=== PATIENT | female | born 1930 | race Caucasian/White ===

== ENCOUNTER 2019-04-16 17:01 | Inpatient (IN) ==
[2019-04-16 18:26] LABS: Basophils % 0.4 % (0.0-0.8); Eosinophils % 0.3 % (0.00-10.9); Hematocrit 35.8 VOL% (35.7-47.0); Hemoglobin 11.5 GM/DL (12.0-16.0); Immature Granulocytes % 0.6 %; Immature Granulocytes Absolute 0.06 #; Lymphocytes # 0.9 10*3/uL (1.4-4.0); Lymphocytes % 9.2 % (21.3-54.2); Mean Corpuscular HGB Conc 32.1 GM/DL (32-36); Mean Corpuscular Volume 98.9 FL (87-102); Mean Platelet Volume 11.7 FL (9.6-12.0); Monocytes % 5.1 % (1.7-12.7); Neutrophils % 84.4 % (38.7-73.9); Red Blood Count 3.62 MC/CUMM (3.8-5.5); Red Cell Distribution Width 13.2 % (9.3-17.3); White Blood Count 10.1 T/CUMM (4-12)
[2019-04-16 18:27] LABS: Platelet Count 125 T/CUMM (130-400)
[2019-04-16 18:28] LABS: Calcium 8.5 MG/DL (8.5-10.1); Osmolality,Calculated 286.1 MOS/KG (273-304)
[2019-04-16 18:51] LABS: Anisocytosis Slight; Macrocytosis Slight; Platelet Estimate Adequate
[2019-04-16] MEDS ORDERED: DOCUSATE SODIUM 100 MG CAPSULE PO PRN (19:04)
[2019-04-16] MEDS ORDERED: ONDANSETRON 4 MG/2 ML VIAL IV PRN (19:04)
[2019-04-16] MEDS ORDERED: ACETAMINOPHEN 325 MG TABLET PO PRN (19:04)
[2019-04-16] MEDS ORDERED: LACTULOSE 20 GM/30 ML UDCUP PO PRN (19:04)
[2019-04-16 19:07] LABS: Apearance,Urine Slightly Hazy (Clear); Bilirubin,Urine Negative (Negative); Blood, Urine Small mg/dL (Negative); Glucose,Urine (UA) Negative (Negative); Ketones,Urine Negative (Negative); Mucus,Urine Occasional /LPF (Occasional); Nitrite,Urine Negative (Negative); Protein,Urine Negative; RBC,Urine 3 /HPF (0-4); Squamous Epithelial Cell,Urine Occasional /HPF (0-10); Urine Color Yellow (Yellow); Urine Urobilinogen < 2.0 EU/DL (0.2-1.0); WBC,Urine 16 /HPF (0-6)
[2019-04-16] MEDS ORDERED: NITROGLYCERIN SL 0.4 MG TABLET SL PRN (19:09)
[2019-04-16] MEDS: DEXTROSE 5% NACL 0.45% 1,000 ML IV SCH (21:32)
[2019-04-16] MEDS: HYDROmorphone 2 MG/1 ML VIAL IV PRN (21:33)
[2019-04-17] MEDS: HYDROmorphone 2 MG/1 ML VIAL IV PRN ×2 (01:16→23:11)
[2019-04-17 06:00] LABS: Basophils % 0.4 % (0.0-0.8); Eosinophils % 0.1 % (0.00-10.9); Hemoglobin 10.9 GM/DL (12.0-16.0); Immature Granulocytes % 0.4 %; Immature Granulocytes Absolute 0.03 #; Lymphocytes # 1.3 10*3/uL (1.4-4.0); Mean Corpuscular HGB Conc 32.1 GM/DL (32-36); Mean Corpuscular Volume 98.3 FL (87-102); Mean Platelet Volume 11.6 FL (9.6-12.0); Monocytes % 12.1 % (1.7-12.7); Platelet Count 124 T/CUMM (130-400); Red Blood Count 3.46 MC/CUMM (3.8-5.5); Red Cell Distribution Width 13.3 % (9.3-17.3); White Blood Count 7.9 T/CUMM (4-12)
[2019-04-17 06:26] LABS: Calcium 8.3 MG/DL (8.5-10.1); Osmolality,Calculated 280.5 MOS/KG (273-304)
[2019-04-17] MEDS ORDERED: ONDANSETRON 4 MG/2 ML VIAL IV PRN (07:21)
[2019-04-17] MEDS ORDERED: MEPERIDINE 25 MG/1 ML VIAL IV PRN (07:21)
[2019-04-17] MEDS: METOPROLOL SUCCINATE XL 50 MG TABLET PO SCH (08:12)
[2019-04-17] MEDS ORDERED: ceFAZolin 1,000 MG in SYRINGE 1 EACH IV ONE (08:14)
[2019-04-17] MEDS ORDERED: ceFAZolin 1,000 MG VIAL ONE (08:36)
[2019-04-17] MEDS ORDERED: MAGNESIUM HYDROXIDE SUSP 30 ML UDCUP PO PRN (09:48)
[2019-04-17] MEDS ORDERED: diphenhydrAMINE CAP 25 MG CAPSULE PO PRN (09:48)
[2019-04-17] MEDS ORDERED: MORPHINE 4 MG/1 ML VIAL IV PRN (09:56)
[2019-04-17] MEDS ORDERED: LIDOCAINE 2% 5 ML VIAL ONE (10:00)
[2019-04-17] MEDS ORDERED: SEVOFLURANE 1 UNIT/15 MINUTE INH ONE (10:00)
[2019-04-17] MEDS ORDERED: propofoL 200 MG/20 ML VIAL IV ONE (10:00)
[2019-04-17] MEDS ORDERED: fentaNYL 100 MCG/2 ML VIAL ONE (10:01)
[2019-04-17] MEDS ORDERED: ONDANSETRON 4 MG/2 ML VIAL ONE ×2 (10:01→10:20)
[2019-04-17] MEDS ORDERED: PHENYLEPHRINE 10 MG/1 ML VIAL IV ONE (10:01)
[2019-04-17] MEDS ORDERED: ETOMIDATE 40 MG/20 ML VIAL IV ONE (10:02)
[2019-04-17] MEDS ORDERED: GLYCOPYRROLATE 0.4 MG/2 ML VIAL ONE (10:02)
[2019-04-17] MEDS ORDERED: SODIUM CHLORIDE 0.9% 100 ML IV ONE (10:02)
[2019-04-17] MEDS ORDERED: MEPERIDINE 25 MG/1 ML VIAL ONE (10:20)
[2019-04-17] MEDS: LOSARTAN 50 MG TABLET PO SCH (12:09)
[2019-04-17] MEDS: ASPIRIN EC 325 MG TABLET PO SCH (12:09)
[2019-04-17] MEDS: RANITIDINE 150 MG TABLET PO SCH (12:09)
[2019-04-17] MEDS: DEXTROSE 5% NACL 0.45% 1,000 ML IV SCH (12:12)
[2019-04-17] MEDS: MORPHINE 4 MG/1 ML VIAL IV PRN ×2 (13:11→18:48)
[2019-04-17] MEDS: ceFAZolin 1,000 MG in SYRINGE 1 EACH IV SCH ×2 (16:13→23:11)
[2019-04-18] MEDS: DEXTROSE 5% NACL 0.45% 1,000 ML IV SCH (05:21)
[2019-04-18 05:43] LABS: Basophils % 0.1 % (0.0-0.8); Eosinophils # 0.1 10*3/uL (0.0-0.87); Eosinophils % 0.8 % (0.00-10.9); Hematocrit 24.9 VOL% (35.7-47.0); Immature Granulocytes % 0.3 %; Immature Granulocytes Absolute 0.02 #; Lymphocytes # 1.1 10*3/uL (1.4-4.0); Lymphocytes % 15.7 % (21.3-54.2); Mean Corpuscular HGB Conc 32.1 GM/DL (32-36); Mean Corpuscular Volume 99.2 FL (87-102); Mean Platelet Volume 11.7 FL (9.6-12.0); Monocytes % 15.4 % (1.7-12.7); Neutrophils % 67.7 % (38.7-73.9); Platelet Count 100 T/CUMM (130-400); Red Blood Count 2.51 MC/CUMM (3.8-5.5); Red Cell Distribution Width 13.3 % (9.3-17.3); White Blood Count 7.3 T/CUMM (4-12)
[2019-04-18 06:13] LABS: Calcium 7.5 MG/DL (8.5-10.1); Osmolality,Calculated 279.7 MOS/KG (273-304)
[2019-04-18] MEDS ORDERED: SODIUM CHLORIDE 0.9% 1,000 ML IV PRN (07:39)
[2019-04-18] MEDS: OMEGA 3 ACID ETHYL ESTERS 1 GM CAPSULE PO SCH (08:50)
[2019-04-18] MEDS: LOSARTAN 50 MG TABLET PO SCH (08:50)
[2019-04-18] MEDS: ASPIRIN EC 325 MG TABLET PO SCH (08:50)
[2019-04-18] MEDS: METOPROLOL SUCCINATE XL 50 MG TABLET PO SCH (08:50)
[2019-04-18] MEDS: CLOPIDOGREL 75 MG TABLET PO SCH (08:50)
[2019-04-18] MEDS: RANITIDINE 150 MG TABLET PO SCH (08:50)
[2019-04-18] MEDS: ceFAZolin 1,000 MG in SYRINGE 1 EACH IV SCH (08:54)
[2019-04-18] MEDS: hydrALAZINE 10 MG TABLET PO SCH ×2 (11:40→22:10)
[2019-04-19 05:14] LABS: Basophils % 0.4 % (0.0-0.8); Eosinophils # 0.1 10*3/uL (0.0-0.87); Eosinophils % 1.1 % (0.00-10.9); Hemoglobin 10.5 GM/DL (12.0-16.0); Immature Granulocytes % 0.4 %; Immature Granulocytes Absolute 0.03 #; Lymphocytes % 12.9 % (21.3-54.2); Mean Corpuscular HGB Conc 32.8 GM/DL (32-36); Mean Corpuscular Volume 91.7 FL (87-102); Mean Platelet Volume 11.8 FL (9.6-12.0); Monocytes % 12.8 % (1.7-12.7); Neutrophils % 72.4 % (38.7-73.9); Platelet Count 83 T/CUMM (130-400); Red Blood Count 3.49 MC/CUMM (3.8-5.5); Red Cell Distribution Width 18.1 % (9.3-17.3); White Blood Count 7.5 T/CUMM (4-12)
[2019-04-19 05:36] LABS: Hypochromasia 1+; Platelet Estimate Decreased
[2019-04-19 05:38] LABS: Ovalocytes Slight
[2019-04-19 05:47] LABS: Calcium 7.8 MG/DL (8.5-10.1); Osmolality,Calculated 277.7 MOS/KG (273-304)
[2019-04-19 05:49] LABS: % Iron Saturation 17.4 % (18-50); Ferritin 213.9 ng/ml (8-252)
[2019-04-19 05:56] LABS: Folate 3.7 NG/ML (5.4-24.0); Vitamin B12 235 PG/ML (211-911)
[2019-04-19 06:19] LABS: Sedimentation Rate-Westergren 18 MM/HR (0-30)
[2019-04-19] MEDS: DEXTROSE 5% NACL 0.45% 1,000 ML IV SCH ×2 (08:23→15:35)
[2019-04-19] MEDS: LOSARTAN 50 MG TABLET PO SCH (08:32)
[2019-04-19] MEDS: ASPIRIN EC 325 MG TABLET PO SCH (08:32)
[2019-04-19] MEDS: hydrALAZINE 10 MG TABLET PO SCH ×2 (08:32→22:00)
[2019-04-19] MEDS: OMEGA 3 ACID ETHYL ESTERS 1 GM CAPSULE PO SCH (08:33)
[2019-04-19] MEDS: METOPROLOL SUCCINATE XL 50 MG TABLET PO SCH (08:34)
[2019-04-19] MEDS: CLOPIDOGREL 75 MG TABLET PO SCH (08:34)
[2019-04-19] MEDS: RANITIDINE 150 MG TABLET PO SCH (08:35)
[2019-04-19 10:48] LABS: Hemoglobin A1 (Alkaline) 97.3 % (96.5-98.5); Hemoglobin A2 (Alkaline) 2.7 % (1.5-3.5)
[2019-04-19] MEDS ORDERED: SENNA 8.6 MG TABLET PO SCH (21:00)
[2019-04-19] MEDS ORDERED: FOLIC ACID 1 MG TABLET PO SCH (21:00)
[2019-04-19] MEDS: DOCUSATE SODIUM 100 MG CAPSULE PO SCH (22:00)
[2019-04-19] MEDS: POLYETHYLENE GLYCOL POWDER 17 GM PACK PO SCH (22:33)
[2019-04-20 05:09] LABS: Basophils % 0.5 % (0.0-0.8); Eosinophils # 0.2 10*3/uL (0.0-0.87); Hemoglobin 9.7 GM/DL (12.0-16.0); Immature Granulocytes % 0.5 %; Immature Granulocytes Absolute 0.03 #; Lymphocytes # 1.3 10*3/uL (1.4-4.0); Lymphocytes % 19.9 % (21.3-54.2); Mean Corpuscular HGB Conc 32.3 GM/DL (32-36); Mean Corpuscular Volume 93.2 FL (87-102); Mean Platelet Volume 11.6 FL (9.6-12.0); Monocytes % 13.6 % (1.7-12.7); Neutrophils % 62.5 % (38.7-73.9); Red Blood Count 3.22 MC/CUMM (3.8-5.5); Red Cell Distribution Width 17.2 % (9.3-17.3); White Blood Count 6.6 T/CUMM (4-12)
[2019-04-20 05:19] LABS: Platelet Count 97 T/CUMM (130-400)
[2019-04-20 05:28] LABS: Hypochromasia Slight; Ovalocytes Slight
[2019-04-20 05:29] LABS: Microcytosis 1+; Platelet Estimate Decreased
[2019-04-20 05:35] LABS: Calcium 7.8 MG/DL (8.5-10.1); Osmolality,Calculated 280.4 MOS/KG (273-304)
[2019-04-20] MEDS ORDERED: LINACLOTIDE 145 MCG CAPSULE PO SCH (07:30)
[2019-04-20] MEDS: DOCUSATE SODIUM 100 MG CAPSULE PO SCH (08:30)
[2019-04-20] MEDS: ASPIRIN EC 325 MG TABLET PO SCH (08:30)
[2019-04-20] MEDS: METOPROLOL SUCCINATE XL 50 MG TABLET PO SCH (08:30)
[2019-04-20] MEDS: RANITIDINE 150 MG TABLET PO SCH (08:30)
[2019-04-20] MEDS: CLOPIDOGREL 75 MG TABLET PO SCH (08:30)
[2019-04-20] MEDS: LOSARTAN 50 MG TABLET PO SCH (08:30)
[2019-04-20] MEDS: OMEGA 3 ACID ETHYL ESTERS 1 GM CAPSULE PO SCH (08:30)
[2019-04-20] MEDS: hydrALAZINE 10 MG TABLET PO SCH (08:30)
[2019-04-20] MEDS: POLYETHYLENE GLYCOL POWDER 17 GM PACK PO SCH (08:31)
[2019-04-20] MEDS ORDERED: MAGNESIUM HYDROXIDE SUSP 30 ML UDCUP PO ONE (09:48)
[2019-04-20] MEDS ORDERED: CHOLECALCIFEROL 1,000 UNIT TABLET PO SCH (10:00)
[2019-04-20] MEDS ORDERED: ENOXAPARIN 30 MG/0.3 ML SYRINGE SUBCUT SCH (10:00)
[2019-04-20 11:19] VITALS: BP 158/55
[2019-04-20] MEDS ORDERED: INFLUENZA VIRUS VACCINE 0.5 ML SYRINGE IM ONE (11:40)
[2019-04-20] MEDS ORDERED: hydrALAZINE 10 MG TABLET PO SCH (14:18)
[2019-04-20] MEDS ORDERED: LACTULOSE 20 GM/30 ML UDCUP PO SCH (21:00)
== END 2019-04-20 14:53 | disposition swing bed (61) | DRG 481 ==
LOC: EDUNIT# → EDBD → N.ED 17:01 → N.EDINP 18:08 → N.3E 18:27
PROVIDERS: ADMIT Hospitalist; ATTEND Hospitalist

== ENCOUNTER 2019-05-18 11:32 | Inpatient (IN) ==
[2019-05-18] MEDS ORDERED: DILTIAZEM 50 MG/10 ML VIAL IV STA (11:56)
[2019-05-18] MEDS ORDERED: DILTIAZEM 25 MG/5 ML VIAL IV ONE (11:59)
[2019-05-18 12:23] LABS: Basophils % 0.3 % (0.0-0.8); Eosinophils # 0.1 10*3/uL (0.0-0.87); Eosinophils % 0.9 % (0.00-10.9); Hematocrit 33.1 VOL% (35.7-47.0); Hemoglobin 10.3 GM/DL (12.0-16.0); Immature Granulocytes % 0.5 %; Immature Granulocytes Absolute 0.03 #; Lymphocytes # 1.3 10*3/uL (1.4-4.0); Lymphocytes % 20.8 % (21.3-54.2); Mean Corpuscular HGB Conc 31.1 GM/DL (32-36); Mean Corpuscular Volume 97.4 FL (87-102); Mean Platelet Volume 10.8 FL (9.6-12.0); Neutrophils % 68.5 % (38.7-73.9); Platelet Count 196 T/CUMM (130-400); Red Cell Distribution Width 16.4 % (9.3-17.3); White Blood Count 6.4 T/CUMM (4-12)
[2019-05-18] MEDS: dilTIAZem Drip 125 MG/125 ML PREMIX IV SCH ×2 (12:37→22:21)
[2019-05-18 12:44] LABS: PT Patient Result 10.7 SECS (9.6-12.2); Partial Thromboplastin Time 22.1 SECS (20.8-36.0)
[2019-05-18 12:57] LABS: Albumin 2.8 G/DL (3.4-5.0); Bilirubin,Total 0.8 MG/DL (0.2-1.0); Calcium 8.9 MG/DL (8.5-10.1); Osmolality,Calculated 278.5 MOS/KG (273-304); Thyroid Stimulating Hormone 1.52 uIU/ml (0.358-3.74); Total Protein 6.2 G/DL (6.4-8.3)
[2019-05-18 13:00] LABS: Platelet Estimate Adequate
[2019-05-18] MEDS ORDERED: ONDANSETRON 4 MG/2 ML VIAL IV PRN (14:49)
[2019-05-18] MEDS ORDERED: ALBUTEROL/IPRATROPIUM 3 ML NEB RESP TX PRN (14:49)
[2019-05-18] MEDS ORDERED: ACETAMINOPHEN 325 MG TABLET PO PRN (14:49)
[2019-05-18] MEDS ORDERED: NITROGLYCERIN SL 0.4 MG TABLET SL PRN (14:52)
[2019-05-18 16:42] LABS: Apearance,Urine CLEAR (Clear); Bacteria,Urine Occasional /HPF (Few); Bilirubin,Urine Negative (Negative); Blood, Urine Negative (Negative); Glucose,Urine (UA) Negative (Negative); Ketones,Urine Negative (Negative); Mucus,Urine Occasional /LPF (Occasional); Nitrite,Urine Negative (Negative); Protein,Urine Negative; RBC,Urine 2 /HPF (0-4); Squamous Epithelial Cell,Urine Occasional /HPF (0-10); Urine Color Yellow (Yellow); Urine Specific Gravity 1.008 (1.001-1.035); Urine Urobilinogen < 2.0 EU/DL (0.2-1.0); WBC,Urine <1 /HPF (0-6)
[2019-05-18 16:43] LABS: Barbiturates Screen,Urine Negative (Negative); Benzodiazepines Screen,Urine Negative (Negative); Cannabinoid Screen,Urine Negative (Negative); Opiate Screen,Urine Negative (Negative); Phencyclidine Screen,Urine Negative (Negative)
[2019-05-18 17:18] LABS: Troponin I 2.33 NG/ML (0.00-0.045)
[2019-05-18 18:56] LABS: CKMB % 9.5 %
[2019-05-18 18:58] LABS: Troponin I 2.54 NG/ML (0.00-0.045)
[2019-05-18] MEDS: DOCUSATE SODIUM 100 MG CAPSULE PO SCH (20:58)
[2019-05-18] MEDS: hydrALAZINE 10 MG TABLET PO SCH (20:58)
[2019-05-18] MEDS: FOLIC ACID 1 MG TABLET PO SCH (20:59)
[2019-05-18] MEDS: SENNA 8.6 MG TABLET PO SCH (21:12)
[2019-05-18] MEDS: LACTULOSE 20 GM/30 ML UDCUP PO SCH (21:12)
[2019-05-19 05:32] LABS: Basophils % 0.6 % (0.0-0.8); Eosinophils # 0.2 10*3/uL (0.0-0.87); Eosinophils % 3.1 % (0.00-10.9); Hematocrit 28.3 VOL% (35.7-47.0); Hemoglobin 9.1 GM/DL (12.0-16.0); Immature Granulocytes % 0.4 %; Immature Granulocytes Absolute 0.02 #; Lymphocytes # 1.6 10*3/uL (1.4-4.0); Lymphocytes % 30.5 % (21.3-54.2); Mean Corpuscular HGB Conc 32.2 GM/DL (32-36); Mean Corpuscular Volume 96.9 FL (87-102); Monocytes % 13.1 % (1.7-12.7); Neutrophils % 52.3 % (38.7-73.9); Platelet Count 176 T/CUMM (130-400); Red Blood Count 2.92 MC/CUMM (3.8-5.5); Red Cell Distribution Width 16.4 % (9.3-17.3); White Blood Count 5.1 T/CUMM (4-12)
[2019-05-19 05:49] LABS: Calcium 8.4 MG/DL (8.5-10.1); Osmolality,Calculated 285.1 MOS/KG (273-304)
[2019-05-19] MEDS: MULTIVITAMIN (CENTRUM) TABLET PO SCH (09:28)
[2019-05-19] MEDS: DOCUSATE SODIUM 100 MG CAPSULE PO SCH ×2 (09:28→21:09)
[2019-05-19] MEDS: CLOPIDOGREL 75 MG TABLET PO SCH (09:28)
[2019-05-19] MEDS: ASPIRIN EC 325 MG TABLET PO SCH (09:28)
[2019-05-19] MEDS: hydrALAZINE 10 MG TABLET PO SCH ×2 (09:28→21:09)
[2019-05-19] MEDS: PANTOPRAZOLE 40 MG TABLET PO SCH (09:28)
[2019-05-19] MEDS: OMEGA 3 ACID ETHYL ESTERS 1 GM CAPSULE PO SCH (09:28)
[2019-05-19] MEDS: LACTULOSE 20 GM/30 ML UDCUP PO SCH ×2 (09:29→21:09)
[2019-05-19] MEDS: CHOLECALCIFEROL 1,000 UNIT TABLET PO SCH (09:29)
[2019-05-19] MEDS: LOSARTAN 50 MG TABLET PO SCH (09:29)
[2019-05-19] MEDS: METOPROLOL SUCCINATE XL 50 MG TABLET PO SCH (09:29)
[2019-05-19] MEDS: DILTIAZEM CD 180 MG CAPSULE PO SCH (09:29)
[2019-05-19] MEDS: FOLIC ACID 1 MG TABLET PO SCH (21:09)
[2019-05-19] MEDS: SENNA 8.6 MG TABLET PO SCH (21:10)
[2019-05-20 06:21] LABS: Basophils % 0.7 % (0.0-0.8); Eosinophils # 0.3 10*3/uL (0.0-0.87); Eosinophils % 4.5 % (0.00-10.9); Hematocrit 31.1 VOL% (35.7-47.0); Hemoglobin 9.7 GM/DL (12.0-16.0); Immature Granulocytes % 0.5 %; Immature Granulocytes Absolute 0.03 #; Lymphocytes # 1.6 10*3/uL (1.4-4.0); Lymphocytes % 29.4 % (21.3-54.2); Mean Corpuscular HGB Conc 31.2 GM/DL (32-36); Mean Corpuscular Volume 96.9 FL (87-102); Mean Platelet Volume 10.6 FL (9.6-12.0); Monocytes % 11.6 % (1.7-12.7); Neutrophils % 53.3 % (38.7-73.9); Platelet Count 175 T/CUMM (130-400); Red Blood Count 3.21 MC/CUMM (3.8-5.5); Red Cell Distribution Width 16.2 % (9.3-17.3); White Blood Count 5.6 T/CUMM (4-12)
[2019-05-20 06:48] LABS: Calcium 8.2 MG/DL (8.5-10.1); Osmolality,Calculated 278.4 MOS/KG (273-304)
[2019-05-20] MEDS ORDERED: POLYETHYLENE GLYCOL POWDER 17 GM PACK PO SCH (07:00)
[2019-05-20] MEDS: hydrALAZINE 10 MG TABLET PO SCH (08:47)
[2019-05-20] MEDS: PANTOPRAZOLE 40 MG TABLET PO SCH (08:47)
[2019-05-20] MEDS: OMEGA 3 ACID ETHYL ESTERS 1 GM CAPSULE PO SCH (08:47)
[2019-05-20] MEDS: CLOPIDOGREL 75 MG TABLET PO SCH (08:47)
[2019-05-20] MEDS: LOSARTAN 50 MG TABLET PO SCH (08:47)
[2019-05-20] MEDS: CHOLECALCIFEROL 1,000 UNIT TABLET PO SCH (08:47)
[2019-05-20] MEDS: DILTIAZEM CD 180 MG CAPSULE PO SCH (08:47)
[2019-05-20] MEDS: METOPROLOL SUCCINATE XL 50 MG TABLET PO SCH (08:47)
[2019-05-20] MEDS: DOCUSATE SODIUM 100 MG CAPSULE PO SCH (08:47)
[2019-05-20] MEDS: ASPIRIN EC 325 MG TABLET PO SCH (08:47)
[2019-05-20] MEDS: MULTIVITAMIN (CENTRUM) TABLET PO SCH (08:47)
[2019-05-20] MEDS: LACTULOSE 20 GM/30 ML UDCUP PO SCH (08:48)
[2019-05-20 11:48] VITALS: BP 149/57
== END 2019-05-20 13:54 | DRG 309 ==
LOC: EDBD → EDUNIT# → N.ED 11:32 → N.EDINP 14:47 → N.TELES 16:07
PROVIDERS: ADMIT Internal Medicine; ATTEND Internal Medicine

== ENCOUNTER 2019-11-11 22:07 | Observation (INO) ==
[2019-11-11] MEDS ORDERED: ALBUTEROL/IPRATROPIUM 3 ML NEB RESP TX STA (22:49)
[2019-11-11] MEDS ORDERED: ONDANSETRON 4 MG/2 ML VIAL IV STA (22:49)
[2019-11-11] MEDS ORDERED: methylPREDNISolone SOD SUC 125 MG/2 ML VIAL IV STA (22:49)
[2019-11-11] MEDS ORDERED: FUROSEMIDE 40 MG/4 ML VIAL IV STA (22:49)
[2019-11-11 23:49] LABS: Basophils # 0.1 10*3/uL (0.0-0.2); Basophils % 0.7 % (0.0-0.8); Eosinophils # 0.1 10*3/uL (0.0-0.87); Hemoglobin 11.5 GM/DL (12.0-16.0); Immature Granulocytes % 0.3 %; Immature Granulocytes Absolute 0.02 #; Mean Corpuscular HGB Conc 31.9 GM/DL (32-36); Mean Corpuscular Volume 98.6 FL (87-102); Mean Platelet Volume 10.8 FL (9.6-12.0); Monocytes % 20.4 % (1.7-12.7); Neutrophils % 62.6 % (38.7-73.9); Platelet Count 163 T/CUMM (130-400); Red Blood Count 3.65 MC/CUMM (3.8-5.5); Red Cell Distribution Width 13.5 % (9.3-17.3); White Blood Count 6.9 T/CUMM (4-12)
[2019-11-12 00:14] LABS: Albumin 3.6 G/DL (3.4-5.0); Bilirubin,Total 0.4 MG/DL (0.2-1.0); Calcium 9.1 MG/DL (8.5-10.1); Osmolality,Calculated 278.7 MOS/KG (273-304); Total Protein 7.4 G/DL (6.4-8.3)
[2019-11-12 00:24] LABS: PT Patient Result 10.9 SECS (9.8-11.9)
[2019-11-12 01:04] LABS: Anisocytosis 1+; Hypochromasia 2+; Lymphocytes 16 % (20-55); Macrocytosis 1+; Platelet Estimate Normal; Segmented Neutrophils 67 % (50-85); Total Cells Counted 100
[2019-11-12] MEDS ORDERED: ACETAMINOPHEN 325 MG TABLET PO PRN (02:35)
[2019-11-12] MEDS ORDERED: hydrALAZINE 20 MG/1 ML VIAL IV PRN (02:35)
[2019-11-12] MEDS ORDERED: ONDANSETRON 4 MG/2 ML VIAL IV PRN (02:35)
[2019-11-12] MEDS ORDERED: guaiFENesin/DM ER 600-30 MG TABLET PO PRN (02:35)
[2019-11-12] MEDS ORDERED: DEXTROSE 50% 25 GM/50 ML VIAL IV PRN (02:35)
[2019-11-12] MEDS ORDERED: GLUCAGON 1 MG VIAL IM PRN (02:35)
[2019-11-12] MEDS ORDERED: NICOTINE 21 MG/24 HR PATCH TRANSDERM PRN (02:35)
[2019-11-12 04:28] LABS: Risk Ratio 2.11; VLDL CHOLESTEROL 13.6 MG/DL
[2019-11-12] MEDS ORDERED: NITROGLYCERIN SL 0.4 MG TABLET SL PRN (06:57)
[2019-11-12] MEDS ORDERED: POLYETHYLENE GLYCOL POWDER 17 GM PACK PO SCH (07:00)
[2019-11-12] MEDS ORDERED: LOSARTAN 50 MG TABLET PO SCH (08:00)
[2019-11-12] MEDS: LACTULOSE 20 GM/30 ML UDCUP PO SCH ×2 (10:06→20:05)
[2019-11-12] MEDS: FUROSEMIDE 20 MG/2 ML VIAL IV SCH (10:06)
[2019-11-12] MEDS: DOCUSATE SODIUM 100 MG CAPSULE PO SCH ×2 (10:06→20:06)
[2019-11-12] MEDS: METOPROLOL SUCCINATE XL 50 MG TABLET PO SCH (10:07)
[2019-11-12] MEDS: ASPIRIN EC 325 MG TABLET PO SCH (10:07)
[2019-11-12] MEDS: CLOPIDOGREL 75 MG TABLET PO SCH (10:07)
[2019-11-12] MEDS: MULTIVITAMIN (CENTRUM) TABLET PO SCH (10:07)
[2019-11-12] MEDS: DILTIAZEM CD 180 MG CAPSULE PO SCH (10:07)
[2019-11-12] MEDS ORDERED: FOLIC ACID 1 MG TABLET PO SCH (20:00)
[2019-11-13] MEDS: DOCUSATE SODIUM 100 MG CAPSULE PO SCH (09:27)
[2019-11-13] MEDS: ASPIRIN EC 325 MG TABLET PO SCH (09:27)
[2019-11-13] MEDS: CLOPIDOGREL 75 MG TABLET PO SCH (09:27)
[2019-11-13] MEDS: DILTIAZEM CD 180 MG CAPSULE PO SCH (09:27)
[2019-11-13] MEDS: MULTIVITAMIN (CENTRUM) TABLET PO SCH (09:27)
[2019-11-13] MEDS: LACTULOSE 20 GM/30 ML UDCUP PO SCH (09:27)
[2019-11-13] MEDS: METOPROLOL SUCCINATE XL 50 MG TABLET PO SCH (09:27)
[2019-11-13] MEDS: FUROSEMIDE 20 MG/2 ML VIAL IV SCH (09:27)
[2019-11-13] MEDS ORDERED: FUROSEMIDE 20 MG TABLET PO SCH (10:00)
[2019-11-13 11:19] LABS: Osmolality,Calculated 291.1 MOS/KG (273-304)
[2019-11-13 12:16] LABS: Amorphous Crystals,Urine Occasional /HPF (Few); Apearance,Urine Slightly Hazy (Clear); Bacteria,Urine Occasional /HPF (Few); Bilirubin,Urine Negative (Negative); Blood, Urine Negative (Negative); Glucose,Urine (UA) Negative (Negative); Hyaline Casts,Urine 1 /LPF (0-3); Ketones,Urine Negative (Negative); Mucus,Urine Occasional /LPF (Occasional); Nitrite,Urine Negative (Negative); Protein,Urine Negative; Squamous Epithelial Cell,Urine Occasional /HPF (0-10); Urine Color Yellow (Yellow); Urine Specific Gravity 1.014 (1.001-1.035); Urine Urobilinogen < 2.0 EU/DL (0.2-1.0)
[2019-11-13 12:45] VITALS: BP 161/70
== END 2019-11-13 15:15 | disposition swing bed (61) ==
LOC: EDBD → EDUNIT# → N.ED 22:07 → N.EDINP 22:07 → SUATTDRO 11-12 02:35 → N.TELEN 11-12 04:10
PROVIDERS: ADMIT Internal Medicine; ATTEND Internal Medicine